=== PATIENT | male | born 1955 | race Two or more races ===

== ENCOUNTER 2018-01-20 11:36 | Emergency (ER) | payer MEDICAID ==
[~2018-01-20] VITALS: Ht 177.8 cm; Wt 90.7 kg
[2018-01-20 11:55] VITALS: BP 139/85
--- NOTE | 2018-01-20 12:17 | Emergency Room Report ---
History of Present Illness General Chief Complaint: General Complaint Present Illness HPI 62 yo patient presents to ER complaining bilateral foot swelling x2 months. Patient reports swelling has progressively gotten worse. Reports pain with walking; worse in right foot; able to ambulate with pain; was driven to ER by brother. Reports seen by physician 1 week after onset of symptoms; instructed to ice and take NSAIDs; reports did with no relief of symptoms. Denies hx of cardiovascular disease; is not taking medications currently. Denies hx of trauma. Denies calf pain. Denies chest pain, SOB, fever. Allergies: Coded Allergies: No Known Allergies (Unverified , 01/20/18) Patient History Past Medical History: see triage record Reviewed Nursing Documentation: PMH: Agreed, PSxH: Agreed Nursing Documentation-PMH Past Medical History: No Stated History Review of Systems All Other Systems: negative except mentioned in HPI Physical Exam Vital Signs Date Time Temp Pulse Resp B/P (MAP) Pulse Ox O2 Delivery O2 Flow Rate FiO2 01/20/18 11:55 98.0 76 18 139/85 95 Room Air 98.1 Sp02 EP Interpretation: reviewed, normal General Appearance: well appearing, no apparent distress, alert, GCS 15 Head: normocephalic, atraumatic Eyes: bilateral eye normal inspection, bilateral eye PERRL ENT: hearing grossly normal, normal pharynx, no angioedema, normal voice, uvula midline, moist mucus membranes Neck: full range of motion Respiratory: lungs clear, normal breath sounds, no rhonchi, no respiratory distress, no accessory muscle use, no wheezing, speaking full sentences Cardiovascular #1: regular rate, rhythm Musculoskeletal: back normal, digits/nails normal, gait/station normal, normal range of motion, non-tender, no calf tenderness, Arthur's Sign negative, swelling - bilateral feet, other - NVI, sensation intact to light touch Neurologic: alert, oriented x3, responsive, motor strength/tone normal, sensory intact Psychiatric: mood/affect normal Skin: no rash, other - no cyanosis, no bleeding, no skin breaks, no pus, no signs of infection Lymphatic: no adenopathy Medical Decision Making PA Attestation Dr. Gupta is my supervising Physician whom patient management has been discussed with. Diagnostic Impression: Primary Impression: Pedal edema ER Course Pt. presents to the ED c/o bilateral foot swelling. Ddx considered but are not limited to peripheral edema, cellulitis, rash. Patient is resting comfortably, in no acute distress. No hx of cardiovascular disease, no chest pain, SOB, fever. Does not require workup at this time for CHF exacerbation. DVT unlikely per Well's criteria. Bilateral pedal edema on physical exam, no signs of infection, no erythema, no skin break. Sensation intact to light touch, no calf pain, cap refill <2seconds in digits of feet bilaterally. Vital signs: are WNL, pt. is afebrile ORDERS: none required at this time, the diagnosis is clinical ED INTERVENTIONS: Crutches provided at patient request. DISCHARGE: Instructed patient to purchase compression stockings and followup with primary care provider for further treatment and diagnosis. Discuss followup with cardiology at that time. Take Tylenol for pain symptoms. Patient reports physician works nearby and will followup with him today or tomorrow. At this time pt is stable for d/c to home. Patient is resting comfortably, in no acute distress, nontoxic appearing, talking without difficulty. Patient to take medications as instructed Will provide with patient care instructions and any necessary prescriptions. Care plan and follow-up instructions provided. Patient instructed to follow-up with primary care provider in 3 - 5 days. Patient questions asked and answered. Patient reports understanding and agreement to treatment plan. ER precautions given. Patient instructed to return to ER immediately for any new or worsening of symptoms including but not limited to increasing SOB, persistent fever. Last Vital Signs Date Time Temp Pulse Resp B/P (MAP) Pulse Ox O2 Delivery O2 Flow Rate FiO2 01/20/18 11:55 98.0 76 18 139/85 95 Room Air 98.1 Disposition: HOME, SELF-CARE Condition: Stable Scripts No Active Prescriptions or Reported Meds Patient Instructions: Edema, [id number] Additional Instructions: Followup with primary care provider in 3 -5 days. May need for further workup and referral with cardiology. Discuss treatment at that time. Purchase compression stockings. Take medications as directed for pain; rx not provided. Patient questions asked and answered. ER precautions given, patient instructed to return to ER immediately for any new or worsening of symptoms including but not limited to chest pain, SOB, fever. Venu Main Jan 20, 2018 12:17
[2018-01-20 12:45] VITALS: BP 139/85
== END 2018-01-20 12:45 | disposition home or self-care (01) ==
LOC: EMR 12:40
DX: R60.0 Localized edema (principal)
CPT/HCPCS: 99282